=== PATIENT | female | born 1950 | race Caucasian/White ===

== ENCOUNTER → 2023-11-26 10:32 | Outpatient (REF) | payer BC, SELFPAY | LOC: HWRAD 10:32 | PROVIDERS: ATTENDING PHYSICIAN Family Medicine | DX: K76.0 Fatty (change of) liver, not elsewhere classified (principal) | CPT/HCPCS: 76700 ==

== ENCOUNTER → 2024-04-20 12:41 | Outpatient (REF) | payer MEDICARE, SELFPAY | LOC: HWWDC 12:41 | PROVIDERS: ATTENDING PHYSICIAN Internal Medicine Critical Care Medicine; FAMILY PHYSICIAN Family Medicine | DX: Z12.31 Encounter for screening mammogram for malignant neoplasm of breast (principal); J47.9 Bronchiectasis, uncomplicated | CPT/HCPCS: 71046; 77063; 77067 ==

== ENCOUNTER → 2024-05-14 09:48 | Outpatient (REF) | payer MEDICARE, SELFPAY | LOC: WDC 09:48 | PROVIDERS: ATTENDING PHYSICIAN Family Medicine | DX: R92.8 Other abnormal and inconclusive findings on diagnostic imaging of breast (principal) | CPT/HCPCS: 77065 ==

== ENCOUNTER → 2024-05-21 06:37 | Outpatient (REF) | payer MEDICARE, SELFPAY ==
--- NOTE | 2024-05-21 09:03 | OID.BR.INTR ---
[facility]igator - Initial
- -
Date of Contact: 05/21/24
Met with patient. Patient given written information on navigator services available at . Will follow up as needed per protocol.
== END ==
LOC: WDC 06:37
PROVIDERS: ATTENDING PHYSICIAN Family Medicine
DX: R92.1 Mammographic calcification found on diagnostic imaging of breast (principal)
CPT/HCPCS: 88305; 19081; 76098; A4648

== ENCOUNTER → 2024-09-02 08:06 | Outpatient (REF) | payer MEDICARE, SELFPAY | LOC: EMG 08:06 | PROVIDERS: ATTENDING PHYSICIAN Orthopaedic Surgery; FAMILY PHYSICIAN Family Medicine | DX: R20.0 Anesthesia of skin (principal) | CPT/HCPCS: 95886; 95911 ==

== ENCOUNTER → 2025-03-08 10:30 | Outpatient (REF) | payer MEDICARE, SELFPAY | LOC: HWRAD 10:30 | PROVIDERS: ATTENDING PHYSICIAN Family Medicine | DX: Z78.0 Asymptomatic menopausal state (principal) | CPT/HCPCS: 77080 ==